=== PATIENT | female | born 1970 ===

== ENCOUNTER 2016-11-03 17:09 | Emergency (ER) | payer SELFPAY ==
[2016-11-03 17:09] VITALS: BMI 23.4
[2016-11-03 17:21] VITALS: TEMP 97.6; O2SAT 98
--- NOTE | 2016-11-03 18:03 | C.PDOC ---
History Of Present Illness 46 yr old female presents to the ER with complaints of left foot pain for " a while" but worsening over the last week. Patient states her job requires her to be on her feet. Patient states the pain is worsened with standing. Denies trauma , leg pain, weakness or numbness. Time Seen by Provider: 11/03/16 17:34 Chief Complaint (Nursing): Lower Extremity Problem/Injury History Per: Patient History/Exam Limitations: no limitations Onset/Duration Of Symptoms: Days Current Symptoms Are (Timing): Still Present Recent travel outside of the [place]: No Past Medical History Reviewed: Historical Data, Nursing Documentation, Vital Signs Vital Signs: Last Vital Signs Temp 97.6 F 11/03/16 17:21 Pulse 105 H 11/03/16 17:21 Resp 18 11/03/16 17:21 BP 108/73 11/03/16 17:21 Pulse Ox 98 11/03/16 18:07 - Medical History PMH: COPD, Pneumonia Family History: States: No Known Family Hx - Social History Hx Tobacco Use: Yes Hx Alcohol Use: No Hx Substance Use: No - Immunization History Hx Tetanus Toxoid Vaccination: Yes Hx Influenza Vaccination: Yes Hx Pneumococcal Vaccination: Yes Review Of Systems Except As Marked, All Systems Reviewed And Found Negative. Musculoskeletal: Positive for: Foot Pain (Left ). Negative for: Leg Pain Neurological: Negative for: Weakness, Numbness Physical Exam - Physical Exam Appears: Non-toxic, No Acute Distress Skin: Warm, Dry Head: Atraumatic, Normacephalic Oral Mucosa: Moist Chest: Symmetrical, No Tenderness Cardiovascular: Rhythm Regular, No Murmur Respiratory: Normal Breath Sounds, No Rales, No Rhonchi, No Stridor, No Wheezing Extremity: Normal ROM, No Calf Tenderness, Capillary Refill (<2), Swelling ( Left foot, mild swelling to the medial planter aspect of the foot ) Pulses: Left Dorsalis Pedis: Normal, Right Dorsalis Pedis: Normal Neurological/Psych: Oriented x3, Normal Speech, Normal Motor ED Course And Treatment O2 Sat by Pulse Oximetry: 98 (RA) Pulse Ox Interpretation: Normal - Other Rad X-Ray - Left Foot X-Ray: Interpreted by Me, Viewed By Me Interpretation: Negetive Medical Decision Making Medical Decision Making: PLAN: * X-Ray - Left Foot * Tylenol PO Disposition - Disposition Referrals: [facility] at [facility] [Outside] [facility] [Outside] [facility] [place] [Outside] Disposition: HOME/ ROUTINE Disposition Time: 18:01 Condition: STABLE Additional Instructions: please follow up with your doctor/clinic. return to er with worsening symptoms or concerns. please treat with over the counter pain medications/ antiinflamatory Instructions: Plantar Fasciitis (ED), Foot Sprain (ED) Forms: Work Excuse - Clinical Impression Clinical Impression: Foot pain - Scribe Statement The provider has reviewed the documentation as recorded by the Robby Judd Provider Attestation: All medical record entries made by the Robby were at my direction and personally dictated by me. I have reviewed the chart and agree that the record accurately reflects my personal performance of the history, physical exam, medical decision making, and the department course for this patient. I have also personally directed, reviewed, and agree with the discharge instructions and disposition.
[2016-11-03 18:33] VITALS: BP 116/74; PULSE 70; RESP 16
--- NOTE | 2016-11-04 08:15 | RAD ---
PROCEDURE: Left Foot Radiographs. HISTORY: foot pain COMPARISON: None. FINDINGS: BONES: There is no acute fracture dislocation or suspicious lytic or blastic change identified. A moderate plantar calcaneal spur is identified. JOINTS: Normal. SOFT TISSUES: Normal. OTHER FINDINGS: None. IMPRESSION: No acute fracture or dislocation. Moderate plantar calcaneal spur.
== END 2016-11-03 18:30 | disposition home or self-care (01) ==
LOC: C.ER 17:09
DX: M79.672 Pain in left foot (principal)